=== PATIENT | male | born 1975 | race Hispanic/Latino ===

== ENCOUNTER 2024-04-13 20:30 | Emergency (ER) | payer OTHER, MEDICARE ==
[~2024-04-13] VITALS: Ht 177.8 cm; Wt 107.0 kg
--- NOTE | 2024-04-13 20:35 | NUR ---
UA CUP PROVIDED
[2024-04-13 20:42] VITALS: BP 158/89; PULSE 105; RESP 16; TEMP 99.2; O2SAT 98
--- NOTE | 2024-04-13 20:46 | ERN ---
ED Note History of Present Illness Stated Complaint: ABDOMINAL PAIN Chief Complaint: Abdominal Pain Time Seen by MD: 20:31 Time Seen by Midlevel: 20:31 Dictation: The patient is a 48-year-old male with a history of diabetes, hypertension, p ancreatitis , multiple hernia repairs who presents to the emergency department with complaints of epigastric abdominal pain onset a week ago. Patient reports nausea but no vomiting, no diarrhea constipation. Last bowel movement this morning. Patient reports he was been following up with GI and who is tested for H pylori which was negative. Denies any fevers. Allergies: Coded Allergies: metaxalone (Unverified Allergy, Unknown, 04/13/24) Home Meds Active Scripts Dicyclomine HCl (Bentyl) 20 Mg Tab, 1 TAB PO TID for irritable bowel symptoms for 10 Days, #30 TAB 0 Refills Prov:MICAH GONZALES [employer] COORDINATOR 04/13/24 Ondansetron (Ondansetron Odt) 4 Mg Tab.rapdis, 4 MG PO Q6HPRN PRN for nausea, #16 TAB 0 Refills Prov:TANIKA GONZALESLEN [facility] 04/13/24 Past Medical History Past Medical History: Diabetes-Type II, Hypertension Surgical History: Tonsillectomy, Other Surgical History Other: BACK, RT SHOULDER RN Note Reviewed/Agreed w/PFSH: Yes Review of System Dictation Constitutional: Negative for fever,chills, and weight loss Eyes: Negative for injury, pain,redness, and discharge ENT: Negative for injury,pain or swelling Cardiovascular: Negative for chest pain, palpitations, and edema Respiratory: Negative for shortness of breath, cough, and wheezing, Abdomen/GI: Negative for vomiting, diarrhea, and constipation positive for abdominal pain, nausea Back: Negative for injury and pain : Negative for injury, bleeding and discharge MS/Extremity: Negative for injury and deformity Skin: Negative for rash, and discoloration Neuro: Negative for headache, weakness, numbness, tingling, and seizure Psych: Negative for suicide ideation, homicidal ideation, and hallucinations Initial Vital Sign VS Vital Signs Date Time Temp Pulse Resp B/P (MAP) Pulse Ox O2 Delivery O2 Flow Rate FiO2 04/13/24 20:31 99.1 105 16 155/89 98 Room Air 04/13/24 20:42 0 21 Physical Exam Dictation Vital Signs reviewed General Appearance: Alert, oriented x 3, no acute distress, well developed, nourished. Head and Face: non-traumatic. Eyes: PERRL, pink conjunctivas, eyelid no trauma, anterior chamber with arcus senilis. Ears: Pinnas intact and no signs of trauma or erythema ear canals clear and no discharge TM no erythema Nose: No discharge, no bleeding. Oropharynx: Mouth normal, tongue pink. pharynx clear,no erythema, tonsils no exudates, no abscesses noted, mucous membrane moist Neck: Supple, non-tender, no thyromegaly, no masses, no JVD, no bruits Breast:Deferred Chest:No tenderness, no crepitus, no paradoxical movement, no retractions Lungs:Clear, well-ventilated, symmetric, no rales, no wheezing, no rhonchi, no stridor, good breath sounds bilaterally Heart: Regular rate, regular rhythm, no murmur, no gallops Vascular: no peripheral edema, Abdomen: Soft, positive bowel sounds, nondistended, no guarding, nontender, no rebound, no masses no hepatomegaly, no splenomegaly, no Green's sign, no hernias. Rectal: Deferred Genital: Deferred Neurological: Normal speech, motor function intact, sensory function intact Musculoskeletal: Neck nontender, full range of motion, back nontender, full range of motion, Extremities: nontender, full range of motion Skin: Color pink, dry, no turgor, no rash, no lacerations, no abrasions, no contusions. Lymphatic: Deferred Results (Laboratory/Radiology) Laboratory/Radiology Laboratory Tests Test 04/13/24 20:40 04/13/24 21:10 Urine Color LIGHT-YELLOW (YELLOW) Urine Appearance CLEAR (CLEAR) Urine pH 6.5 (5.0-8.0) Urine Specific [place] 1.013 (1.001-1.031) Urine Protein NEGATIVE mg/dL (NEGATIVE) Urine Glucose (UA) >=1000 mg/dL (NEGATIVE) H Urine Ketones 20 mg/dL (NEGATIVE) H Urine Occult Blood NEGATIVE (NEGATIVE) Urine Nitrate NEGATIVE (NEGATIVE) Urine Bilirubin NEGATIVE mg/dL (NEGATIVE) Urine Urobilinogen 0.2 mg/dL (0.2-1.0) Urine Leukocyte Esterase NEGATIVE Jesse/uL Urine RBC None /HPF (0-1) Urine WBC 0-1 /HPF (0-1) Urine Bacteria None /HPF (None Seen) Urine Opiates Screen NEGATIVE (NEGATIVE) Urine Barbiturates Screen NEGATIVE (NEGATIVE) Urine Phencyclidine Screen NEGATIVE (NEGATIVE) Urine Amphetamines Screen NEGATIVE (NEGATIVE) Urine Benzodiazepines Screen NEGATIVE (NEGATIVE) Urine Cocaine Screen NEGATIVE (NEGATIVE) Urine Marijuana (THC) Screen NEGATIVE (NEGATIVE) White Blood Count 13.4 K/uL (4.8-10.8) H Red Blood Count 6.43 MIL/uL (4.50-6.20) H Hemoglobin 18.4 g/dL (14.0-18.0) H Hematocrit 55.8 % (42-54) H Mean Corpuscular Volume 86.8 fL (79-99) Mean Corpuscular Hemoglobin 28.6 pg (27.0-33.0) Mean Corpuscular Hemoglobin Concent 33.0 g/dL (32.0-36.0) Red Cell Distribution Width 17.1 % (11.0-15.5) H Platelet Count 239 K/uL (130-400) Mean Platelet Volume 9.2 fL (7.5-10.5) Immature Granulocyte % (Auto) 0.4 % (0-1) Neutrophils (%) (Auto) 81.0 % (40.0-77.0) H Lymphocytes (%) (Auto) 8.0 % (21.0-51.0) L Monocytes (%) (Auto) 10.1 % (3.0-13.0) Eosinophils (%) (Auto) 0.2 % (0.0-8.0) Basophils (%) (Auto) 0.3 % (0.0-5.0) Neutrophils # (Auto) 10.9 K/uL (1.8-7.7) H Lymphocytes # (Auto) 1.1 K/uL (1.0-4.8) Monocytes # (Auto) 1.4 K/uL (0.1-1.0) H Eosinophils # (Auto) 0.03 K/uL (0.00-0.70) Basophils # (Auto) 0.04 K/uL (0.00-0.20) Absolute Immature Granulocyte (auto 0.05 K/uL (0-1) Nucleated Red Blood Cells 0.0 % (0.0-0.19) White Cell Morphology Comment See comments Sodium Level 131 mmol/L (136-145) L Potassium Level 4.5 mmol/L (3.5-5.1) Chloride Level 94 mmol/L (101-111) L Carbon Dioxide Level 27 mmol/L (21-32) Blood Urea Nitrogen 13 mg/dL (7-18) Creatinine 0.9 mg/dL (0.5-1.3) Glomerular Filtration Rate Calc 105 mL/min (>90) Random Glucose 186 mg/dL (70-105) H Total Calcium 8.9 mg/dL (8.5-10.1) Total Bilirubin 1.5 mg/dL (0.2-1.0) H Direct Bilirubin 0.2 mg/dL (0.0-0.3) Aspartate Amino Transf (AST/SGOT) 46 U/L (10-37) H Alanine Aminotransferase (ALT/SGPT) 64 U/L (12-78) Alkaline Phosphatase 82 U/L (50-136) Total Creatine Kinase 371 U/L (21-232) H Troponin I High Sensitivity 9 ng/L (4-75) Total Protein 7.8 g/dL (6.0-8.3) Albumin 3.9 g/dL (3.5-5.0) Lipase 42 U/L (16-77) PATIENT: PEMA DIEZ MR#: [id number] : 1975 SEX: M AGE: 48 LOCATION: [facility] ORDER 46 STATUS: [facility] REPORT#: [id number] SERVICE 45 REASON: upper abd pain, n ORDERING PHYSICIAN: MICAH GONZALES PROCEDURE: ABD PEL W - CT ABDOMEN/PELVIS W/CONTRAST CT ABDOMEN/PELVIS W/CONTRAST HISTORY: Upper abdominal pain COMPARISON: None TECHNIQUE: Multiple sequential axial images of the abdomen and pelvis were obtained from the dome of the diaphragm through symphysis pubis. Patient was given 75 cc of Omnipaque through intravenous route. Oral contrast was not given. FINDINGS: No pleural effusion is seen bilaterally. There is no evidence of parenchymal disease or pulmonary nodule of the visualized lower lungs. Degenerative changes of the thoracolumbar spine are present. The heart is not enlarged. Postlaminectomy changes are seen with artifacts in the lower lumbar spine. Liver is enlarged with fatty changes measuring 20 cm. Gastric distention seen small bowel dilatation is seen with fluid-filled colon and small bowel loops may be related to enterocolitis. There is small periumbilical ventral hernia with fat content. The liver, spleen, adrenal glands and pancreas are unremarkable. There is no evidence of hydronephrosis bilaterally. No evidence of renal stone is seen. Fecal material is seen in the colon. There are normal size retroperitoneal and mesenteric lymph nodes. No ascites is seen. Atherosclerotic changes are present. Pelvic sidewalls are symmetric bilaterally. Bladder is well distended without wall thickening. IMPRESSION: 1. Gastric distention seen small bowel dilatation is seen with fluid-filled colon and small bowel loops may be related to enterocolitis. There is small periumbilical ventral hernia with fat content. CT was performed with one or more following dose reduction techniques: automated exposure control, adjustment of the mA and kv according to patient's size, or use of a iterative reconstruction technique. REASON: cp ORDERING PHYSICIAN: MICAH GONZALES PROCEDURE: CXR1VW - CHEST 1VW CHEST 1VW HISTORY: Chest pain COMPARISON: None FINDINGS: A frontal projection of the chest was obtained. Prominent interstitial markings are seen with possible superimposed infiltrates. The heart is borderline enlarged. Degenerative changes are seen. No evidence of aortic calcification is seen. IMPRESSION: 1. Prominent interstitial markings are seen with possible superimposed infiltrates. Labs Reviewed?: Yes EKG: (+) rhythm (Sinus rhythm) EKG Comment: Date:04/13/2024 Time:2051 Ventricular rate:93 SC interval:145 QRS duration:98 QT/QTc:329 EKG interpretation: Sinus rhythm Reviewed by ED Attending no STEMI ED Course ED Course Orders Procedure Category Date Status Time Cbc With Differential LAB 04/13/24 Complete 20:41 Troponin I High LAB 04/13/24 Complete Sensitivity 20:41 Urinalysis Profile LAB 04/13/24 Complete 20:41 12 Lead Ekg Tracing- EKG 04/13/24 Complete Technical 20:41 0.9%Nacl 1000ml (Ns PHA 04/13/24 Complete 1000ml) 21:00 Morphine 4mg Syg PHA 04/13/24 Complete (Morphine 4mg Syg) 21:00 Ondansetron 4mg Inj PHA 04/13/24 Complete (Zofran 4mg Inj) 21:00 Pantoprazole 40mg Inj PHA 04/13/24 Complete (Protonix 40mg Inj 21:00 Creatine Kinase, Total LAB 04/13/24 Complete 20:41 Chest 1vw RAD 04/13/24 Resulted 20:41 Lipase LAB 04/13/24 Complete 20:41 Basic Metabolic Panel LAB 04/13/24 Complete 20:41 Hepatic Function Panel LAB 04/13/24 Complete 20:41 Drug Screen Urine LAB 04/13/24 Complete 20:41 Ct Abdomen/Pelvis CT 04/13/24 Resulted W/Contrast 21:46 Iohexol (Omnipaque) PHA 04/13/24 Complete 22:01 Current Medications Medications (Trade) Dose Ordered Sig/Constance Route PRN Reason Start Time Stop Time Status Last Admin Dose Admin Iohexol (Omnipaque) 75 ml STK-MED ONCE IV 04/13/24 22:01 04/13/24 22:01 DC Morphine Sulfate (morPHINE 4MG SYG) 4 mg ONCE ONCE IVP 04/13/24 21:00 04/13/24 21:01 DC Ondansetron HCl (zoFRAN 4MG INJ) 4 mg ONCE ONCE IVP 04/13/24 21:00 04/13/24 21:01 DC 04/13/24 20:57 Pantoprazole Sodium (PROTonix 40MG INJ) 40 mg ONCE ONCE IVP 04/13/24 21:00 04/13/24 21:01 DC 04/13/24 20:57 Sodium Chloride 1,000 ml @ 0 mls/hr ONCE ONCE IV 04/13/24 21:00 04/13/24 21:01 DC 04/13/24 20:57 Vital Signs Date Time Temp Pulse Resp B/P (MAP) Pulse Ox O2 Delivery O2 Flow Rate FiO2 04/13/24 20:42 99.1 105 16 158/89 98 Room Air* 0 21 04/13/24 20:31 99.1 105 16 155/89 98 Room Air Medical Decision Making MDM The patient is a 48-year-old male with a history of diabetes, hypertension, pancreatitis , multiple hernia repairs who presents to the emergency department with complaints of epigastric abdominal pain onset a week ago. Patient reports nausea but no vomiting, no diarrhea constipation. Last bowel movement this morning. Patient reports he was been following up with GI and who is tested for H pylori which was negative. Denies any fevers. CBC showed mild leukocytosis, no anemia, chemistry showed mild hyponatremia, hypochloremia, normal renal function, negative troponin, negative lipase, urinalysis unremarkable, chest x-ray unremarkable. CT showed small bowel dilation is seen with fluid-filled colon and small bowel loops may be related to enterocolitis. Patient reports feeling better. no vomiting. Patient with non toxic appearance. Differential diagnosis: Gastroenteritis, bowel obstruction, electrolyte imbalance, ACS Need for hospitalization: Patient does not meet criteria for hospitalization. There are no social concerns with this patient. DX & DISP Disposition: Discharge Departure Impression: Primary Impression: Enterocolitis Additional Impressions: Abdominal pain, Mild dehydration, Hyponatremia, Hypochloremia, Leukocytosis Condition: Stable Scripts Dicyclomine HCl (Bentyl) 20 Mg Tab 1 TAB PO TID for irritable bowel symptoms for 10 Days, #30 TAB 0 Refills Prov: MICAH GONZALES [employer] COORDINATOR 04/13/24 Ondansetron (Ondansetron Odt) 4 Mg Tab.rapdis 4 MG PO Q6HPRN PRN for nausea, #16 TAB 0 Refills Prov: MICAH GONZALES [employer] COORDINATOR 04/13/24 Additional Instructions: Please follow up with the gastroenteritis soon as possible. Follow up with your primary doctor in 1-2 days. If symptoms worsen please return to ER. FOLLOW-UP WITH PRIMARY CARE PROVIDER IN 1 TO 2 DAYS. TAKE MEDICATIONS DIRECTED HERE IN THE EMERGENCY ROOM. OKAY TO CONTINUE HOME MEDICATIONS UNLESS OTHERWISE DISCUSSED DURING YOUR VISIT IN THE EMERGENCY ROOM TODAY. RETURN TO YOUR NEAREST EMERGENCY ROOM IF SYMPTOMS WORSEN OR IF THERE IS NO IMPROVEMENT. CALL 911 IF YOU NEED IMMEDIATE ASSISTANCE. TAKE TYLENOL OR MOTRIN [id number] NEEDED AND IF NO CONTRAINDICATIONS ARE PRESENT. INCREASE ORAL HYDRATION. A WOUND CULTURE OR URINE CULTURE WAS ORDERED HERE IN THE EMERGENCY ROOM DEPARTMENT PLEASE FOLLOW-UP WITH PRIMARY CARE PROVIDER AND ADVISE THEM TO GET REPEAT PORTS FROM OUR FACILITY. IF YOU HAD ANY FIDEL WRAP/SPLINTS ELIZABETH T WERE APPLIED HERE, PLEASE DO NOT REMOVE THEM UNTIL YOU SEE YOUR PRIMARY CARE OR SPECIALTY. Time of Disposition: 23:26 I have reviewed the case, and I agree with, Diagnosis and Plan I performed a substantive portion of the visit. I have reviewed and personally made and approve the management plan that is documented in the notes by myself with SARINA/resident. I acknowledged full responsibility for the patient's management plan. MICAH GONZALES Apr 13, 2024 20:46 SAMPSON KURTZ DO Apr 14, 2024 00:02
--- NOTE | 2024-04-13 20:55 | EKG ---
[facility] Test Date: 2024-04-13 Test Time: 20:52:00 Pat Name: PEMA DIEZ Department: ED Room: Gender: M Manager Of Internal Audit: [id number] : 1975 Requested By: MICAH GONZALES Order Number: [id number] Reading MD: Elisabet Hutchinson Measurements Intervals [place] Rate: 93 P: 50 [place]: 145 QRS: 84 QRSD: 98 T: 62 QT: 329 QTc: 410 Interpretive Statements Sinus rhythm ST elevation suggests acute pericarditis No previous ECG available for comparison Electronically Signed On 04-17-2024 15:50:27 MANAGER OF DIGITAL by Elisabet Hutchinson Please click the below link to view image of tracing.
[2024-04-13] MEDS: ondanSETRON 4MG INJ IVP ONE (20:57)
[2024-04-13] MEDS: morPHINE 4 MG SYG IVP ONE (20:57)
[2024-04-13] MEDS: PANTOPrazole 40 MG/VIAL IVP ONE (20:57)
[2024-04-13] MEDS: 0.9%NACL 1000ML 1,000 ML IV ONE (20:57)
[2024-04-13 21:17] LABS: BASOPHILS # (AUTO) 0.04 K/uL (0.00-0.20); BASOPHILS % (AUTO) 0.3 % (0.0-5.0); EOSINOPHILS # (AUTO) 0.03 K/uL (0.00-0.70); EOSINOPHILS % (AUTO) 0.2 % (0.0-8.0); HEMATOCRIT 55.8 % (42-54); IMMATURE GRANULOCYTE ABSOLUTE 0.05 K/uL (0-1); LYMPHOCYTES # (AUTO) 1.1 K/uL (1.0-4.8); MEAN CORPUSCULAR HEMOGLOBIN 28.6 pg (27.0-33.0); MEAN CORPUSCULAR VOLUME 86.8 fL (79-99); MONOCYTES # (AUTO) 1.4 K/uL (0.1-1.0); MONOCYTES % (AUTO) 10.1 % (3.0-13.0); NEUTROPHILS # (AUTO) 10.9 K/uL (1.8-7.7); PLATELET COUNT (AUTO) 239 K/uL (130-400); RED BLOOD CELL COUNT(AUTO) 6.43 MIL/uL (4.50-6.20); RED CELL DISTRIBUTION WIDTH 17.1 % (11.0-15.5); WHITE BLOOD COUNT (AUTO) 13.4 K/uL (4.8-10.8)
[2024-04-13 21:30] LABS: CREATININE 0.9 mg/dL (0.5-1.3); POTASSIUM 4.5 mmol/L (3.5-5.1)
[2024-04-13 21:34] LABS: ALBUMIN 3.9 g/dL (3.5-5.0); BILIRUBIN,DIRECT 0.2 mg/dL (0.0-0.3); BILIRUBIN,TOTAL 1.5 mg/dL (0.2-1.0); TOTAL PROTEIN, SERUM 7.8 g/dL (6.0-8.3)
[2024-04-13 21:48] LABS: APPEARANCE,URINE CLEAR (CLEAR); BILIRUBIN,URINE NEGATIVE (NEGATIVE); COLOR,URINE LIGHT-YELLOW (YELLOW); GLUCOSE, URINE (UA) >=1000 mg/dL (NEGATIVE); KETONES,URINE 20 mg/dL (NEGATIVE); LEUKOCYTE ESTERASE ,URINE NEGATIVE Leu/uL (NEGATIVE); NITRATE,URINE NEGATIVE (NEGATIVE); OCCULT BLOOD,URINE NEGATIVE (NEGATIVE); PH,URINE 6.5 (5.0-8.0); PROTEIN,URINE NEGATIVE (NEGATIVE); UROBILINOGEN,URINE 0.2 mg/dL (0.2-1.0)
[2024-04-13 21:49] LABS: ADD UA MICROSCOPIC YES
[2024-04-13 21:53] LABS: AMPHET/METH SCREEN,URINE NEGATIVE (NEGATIVE); BARBITURATE SCREEN, URINE NEGATIVE (NEGATIVE); BENZODIAZEPINES SCREEN,URINE NEGATIVE (NEGATIVE); CANNABINOID SCREEN,URINE NEGATIVE (NEGATIVE); COCAINE SCREEN,URINE NEGATIVE (NEGATIVE); OPIATE SCREEN,URINE NEGATIVE (NEGATIVE); PHENCYCLIDINE SCREEN,URINE NEGATIVE (NEGATIVE); WBC,URINE 0-1 /HPF (0-1)
[2024-04-13] MEDS ORDERED: IOHEXOL-350 75 ML VIAL IV ONE (22:01)
--- NOTE | 2024-04-13 22:39 | HMCIMG ---
CHEST 1VW HISTORY: Chest pain COMPARISON: None FINDINGS: A frontal projection of the chest was obtained. Prominent interstitial markings are seen with possible superimposed infiltrates. The heart is borderline enlarged. Degenerative changes are seen. No evidence of aortic calcification is seen. IMPRESSION: 1. Prominent interstitial markings are seen with possible superimposed infiltrates.
--- NOTE | 2024-04-13 23:00 | HMCIMG ---
CT ABDOMEN/PELVIS W/CONTRAST HISTORY: Upper abdominal pain COMPARISON: None TECHNIQUE: Multiple sequential axial images of the abdomen and pelvis were obtained from the dome of the diaphragm through symphysis pubis. Patient was given 75 cc of Omnipaque through intravenous route. Oral contrast was not given. FINDINGS: No pleural effusion is seen bilaterally. There is no evidence of parenchymal disease or pulmonary nodule of the visualized lower lungs. Degenerative changes of the thoracolumbar spine are present. The heart is not enlarged. Postlaminectomy changes are seen with artifacts in the lower lumbar spine. Liver is enlarged with fatty changes measuring 20 cm. Gastric distention seen small bowel dilatation is seen with fluid-filled colon and small bowel loops may be related to enterocolitis. There is small periumbilical ventral hernia with fat content. The liver, spleen, adrenal glands and pancreas are unremarkable. There is no evidence of hydronephrosis bilaterally. No evidence of renal stone is seen. Fecal material is seen in the colon. There are normal size retroperitoneal and mesenteric lymph nodes. No ascites is seen. Atherosclerotic changes are present. Pelvic sidewalls are symmetric bilaterally. Bladder is well distended without wall thickening. IMPRESSION: 1. Gastric distention seen small bowel dilatation is seen with fluid-filled colon and small bowel loops may be related to enterocolitis. There is small periumbilical ventral hernia with fat content. CT was performed with one or more following dose reduction techniques: automated exposure control, adjustment of the mA and kv according to patient's size, or use of a iterative reconstruction technique.
[2024-04-13] MEDS ORDERED: ONDA-243 PO (23:16)
[2024-04-13] MEDS ORDERED: DICY20TA2 PO (23:28)
== END 2024-04-13 23:42 | disposition home or self-care (01) ==
LOC: EDH 20:30
DX: K52.9 Noninfective gastroenteritis and colitis, unspecified (principal); R10.13 Epigastric pain; E86.0 Dehydration; E87.1 Hypo-osmolality and hyponatremia; E87.8 Other disorders of electrolyte and fluid balance, not elsewhere classified; E11.9 Type 2 diabetes mellitus without complications; I10 Essential (primary) hypertension; Z90.89 Acquired absence of other organs; Z79.899 Other long term (current) drug therapy
CPT/HCPCS: 99285; 74177; 96374; 71045; 96375; 82550; 80076; 84484; 80048; 80305; 83690; 85025; 36415; 93005; 81001; J7030; J2405; J2470; Q9967; J2270

== ENCOUNTER 2024-06-13 14:17 | Emergency (ER) | payer OTHER, MEDICARE ==
[~2024-06-13] VITALS: Ht 177.8 cm; Wt 108.9 kg
[~2024-06-13 14:17] MED LIST: DICY20TA2 PO; ONDA-243 PO
[2024-06-13 14:48] VITALS: BP 164/88; PULSE 81; RESP 20; TEMP 99.1
== END 2024-06-13 18:00 | disposition left against medical advice (07) ==
LOC: EDH 14:17
DX: R50.9 Fever, unspecified (principal); R51.9 Headache, unspecified; R11.0 Nausea; Z53.21 Procedure and treatment not carried out due to patient leaving prior to being seen by health care provider

== ENCOUNTER 2024-06-25 19:46 | Emergency (ER) | payer OTHER, MEDICARE ==
[~2024-06-25] VITALS: Ht 177.8 cm; Wt 122.5 kg
--- NOTE | 2024-06-25 20:43 | NUR ---
REPORT TO GILMA CELESTIN
[2024-06-25] MEDS: TETRACAINE HCL 0.5% 4 ML OPHTH SOLN OP ONE (21:11)
[2024-06-25] MEDS ORDERED: ERYT1OIN7 OP (21:11)
[2024-06-25] MEDS: FLUORESCEIN SODIUM 1 STRIP STRIP OP ONE (21:11)
[2024-06-25 21:12] VITALS: BP 155/70; PULSE 76; RESP 16; TEMP 98.3; O2SAT 98
--- NOTE | 2024-06-25 21:12 | ERN ---
ED Note History of Present Illness Stated Complaint: LEFT EYE INJURY Chief Complaint: Eye Problems Time Seen by MD: 19:50 Time Seen by Midlevel: 19:50 Dictation: Patient is a 49-year-old male with a history of diabetes, hypertension, hyperlipidemia who presents to the emergency department with complaints of left eye foreign body sensation onset five 3:00 p.m. while he was working on a car and reports the splint on his eye. Denies any visual deficits. Allergies: Coded Allergies: metaxalone (Unverified Allergy, Unknown, 04/13/24) Home Meds Active Scripts Dicyclomine HCl (Bentyl) 20 Mg Tab, 1 TAB PO TID for irritable bowel symptoms for 10 Days, #30 TAB 0 Refills Prov:MICAH GONZALES [facility] 04/13/24 Ondansetron (Ondansetron Odt) 4 Mg Tab.rapdis, 4 MG PO Q6HPRN PRN for nausea, #16 TAB 0 Refills Prov:TANIKA GONZALESLEN [facility] 04/13/24 Past Medical History Past Medical History: Diabetes-Type II, Hypertension Surgical History: Tonsillectomy, Other Surgical History Other: BACK, RT SHOULDER, LEFT KNEE RN Note Reviewed/Agreed w/PFSH: Yes Review of System Dictation Constitutional: Negative for fever,chills, and weight loss Eyes: Negative for injury, ,redness, and discharge positive for left eye pain ENT: Negative for injury,pain or swelling Cardiovascular: Negative for chest pain, palpitations, and edema Respiratory: Negative for shortness of breath, cough, and wheezing, Abdomen/GI: Negative for abdominal pain, nausea, vomiting, diarrhea, and constipation Back: Negative for injury and pain : Negative for injury, bleeding and discharge MS/Extremity: Negative for injury and deformity Skin: Negative for rash, and discoloration Neuro: Negative for headache, weakness, numbness, tingling, and seizure Psych: Negative for suicide ideation, homicidal ideation, and hallucinations Initial Vital Sign VS Vital Signs Date Time Temp Pulse Resp B/P (MAP) Pulse Ox O2 Delivery O2 Flow Rate FiO2 06/25/24 19:47 98.2 83 18 140/77 98 Room Air Physical Exam Dictation Vital Signs reviewed General Appearance: Alert, oriented x 3, no acute distress, well developed, nourished. Head and Face: non-traumatic. Eyes: PERRL, pink conjunctivas, eyelid no trauma, anterior chamber with arcus senilis. Ears: Pinnas intact and no signs of trauma or erythema ear canals clear and no discharge TM no erythema Nose: No discharge, no bleeding. Oropharynx: Mouth normal, tongue pink. pharynx clear,no erythema, tonsils no exudates, no abscesses noted, mucous membrane moist Neck: Supple, non-tender, no thyromegaly, no masses, no JVD, no bruits Breast:Deferred Chest:No tenderness, no crepitus, no paradoxical movement, no retractions Lungs:Clear, well-ventilated, symmetric, no rales, no wheezing, no rhonchi, no stridor, good breath sounds bilaterally Heart: Regular rate, regular rhythm, no murmur, no gallops Vascular: no peripheral edema, Abdomen: Soft, positive bowel sounds, nondistended, no guarding, nontender, no rebound, no masses no hepatomegaly, no splenomegaly, no Green's sign, no hernias. Rectal: Deferred Genital: Deferred Neurological: Normal speech, motor function intact, sensory function intact Musculoskeletal: Neck nontender, full range of motion, back nontender, full range of motion, Extremities: nontender, full range of motion Skin: Color pink, dry, no turgor, no rash, no lacerations, no abrasions, no contusions. Lymphatic: Deferred Results (Laboratory/Radiology) Labs Reviewed?: Yes ED Course ED Course Orders Procedure Category Date Status Time Tetracaine Hcl PHA 06/25/24 Complete (Pontocaine 0.5% 20:00 Fluorescein Sodium PHA 06/25/24 Complete (Dznmy-U-Mlsgl At) 20:00 Current Medications Medications (Trade) Dose Ordered Sig/Constance Route PRN Reason Start Time Stop Time Status Last Admin Dose Admin Fluorescein Sodium (Nahgs-E-Hduqo At) 1 strip ONCE ONCE OP 06/25/24 20:00 06/25/24 20:03 DC Tetracaine HCl (Pontocaine 0.5% Ophth Soln) 1 OR 2 DROPS ONCE ONCE OP 06/25/24 20:00 06/25/24 20:03 DC Vital Signs Date Time Temp Pulse Resp B/P (MAP) Pulse Ox O2 Delivery O2 Flow Rate FiO2 06/25/24 19:47 98.2 83 18 140/77 98 Room Air Medical Decision Making MDM Patient is a 49-year-old male with a history of diabetes, hypertension, hy perlipidemia who presents to the emergency department with complaints of left eye foreign body sensation onset five 3:00 p.m. while he was working on a car and reports the splint on his eye. Denies any visual deficits. No obvious foreign body identified on physical exam, slight dye uptake to 12:00 o'clock of cornea. Patient will be treated with the erythromycin and i nstructed to follow up with PCP. In Ophthalmology. Differential diagnosis: Corneal abrasion, foreign object, conjunctivitis Need for hospitalization: Patient does not meet criteria for hospitalization. There are no social concerns with this patient. DX & DISP Disposition: Discharge Departure Impression: Primary Impression: Corneal abrasion, left Condition: Stable Scripts Erythromycin Base (Erythromycin) 5 Mg/Gram (0.5 %) Oint...g. 1 CM OP QID for 5 Days, #1 UNIT Prov: MICAH GONZALES 06/25/24 Additional Instructions: Please follow up with your primary doctor in 1-2 days. You will need to follow up with Ophthalmology. [facility] [place] [address] [place] [phone] FOLLOW-UP WITH PRIMARY CARE PROVIDER IN 1 TO 2 DAYS. TAKE MEDICATIONS DIRECTED HERE IN THE EMERGENCY ROOM. OKAY TO CONTINUE HOME MEDICATIONS UNLESS OTHERWISE DISCUSSED DURING YOUR VISIT IN THE EMERGENCY ROOM TODAY. RETURN TO YOUR NEAREST EMERGENCY ROOM IF SYMPTOMS WORSEN OR IF THERE IS NO IMPROVEMENT. CALL 911 IF YOU NEED IMMEDIATE ASSISTANCE. TAKE TYLENOL OR MOTRIN [id number] NEEDED AND IF NO CONTRAINDICATIONS ARE PRESENT. INCREASE ORAL HYDRATION. A WOUND CULTURE OR URINE CULTURE WAS ORDERED HERE IN THE EMERGENCY ROOM DEPARTMENT PLEASE FOLLOW-UP WITH PRIMARY CARE PROVIDER AND ADVISE THEM TO GET REPEAT PORTS FROM OUR FACILITY. IF YOU HAD ANY FIDEL WRAP/SPLINTS THAT WERE APPLIED HERE, PLEASE DO NOT REMOVE THEM UNTIL YOU SEE YOUR PRIMARY CARE OR SPECIALTY. Referrals: MICHELLE RAMÍREZ JR., MD (PCP) Time of Disposition: 21:09 I have reviewed the case, and I agree with, Diagnosis and Plan MICAH GONZALES Jun 25, 2024 21:12
--- NOTE | 2024-06-25 21:26 | NUR ---
UNABLE TO DISCHARGE DUE TO REGISTRATATION PROCESS
== END 2024-06-25 21:40 | disposition home or self-care (01) ==
LOC: EDH 19:46
DX: S05.02XA Injury of conjunctiva and corneal abrasion without foreign body, left eye, initial encounter (principal); E11.9 Type 2 diabetes mellitus without complications; I10 Essential (primary) hypertension; Z90.89 Acquired absence of other organs; X58.XXXA Exposure to other specified factors, initial encounter; Y93.89 Activity, other specified; Y92.89 Other specified places as the place of occurrence of the external cause; Y99.8 Other external cause status
CPT/HCPCS: 99283

== ENCOUNTER 2024-09-02 14:52 | Emergency (ER) | payer OTHER, MEDICARE ==
[~2024-09-02] VITALS: Ht 177.8 cm; Wt 111.1 kg
[~2024-09-02 14:52] MED LIST changes: +ERYT1OIN7 OP
--- NOTE | 2024-09-02 15:03 | ERN ---
ED Note History of Present Illness Stated Complaint: ALLERGIC REACTION Chief Complaint: Allergic Reaction Time Seen by MD: 14:56 Dictation: PATIENT IS HERE FOR A PROBABLE ACUTE ALLERGIC REACTION AFTER DRINKING SOME LIQUID TYLENOL 30 MINUTES PRIOR TO ARRIVAL. IMMEDIATELY AFTER THE INGESTION, HE FELT HIS FACE FLUSH SHE FELT BURNING IN HIS LIPS AND THROAT. NO SHORTNESS A BREATH NO RASH. Allergies: Coded Allergies: avocado (Unverified Allergy, Unknown, 09/02/24) metaxalone (Unverified Allergy, Unknown, 04/13/24) Home Meds Active Scripts Erythromycin Base (Erythromycin) 5 Mg/Gram (0.5 %) Oint...g., 1 CM OP QID for 5 Days, #1 UNIT Prov:GONZALESTANIKAMICAH [facility] 06/25/24 Dicyclomine HCl (Bentyl) 20 Mg Tab, 1 TAB PO TID for irritable bowel symptoms for 10 Days, #30 TAB 0 Refills Prov:GONZALESTANIKAMICAH [facility] 04/13/24 Ondansetron (Ondansetron Odt) 4 Mg Tab.rapdis, 4 MG PO Q6HPRN PRN for nausea, #16 TAB 0 Refills Prov:TANIKA GONZALESLEN [facility] 04/13/24 Past Medical History Past Medical History: Diabetes-Type II, Hypertension Surgical History: Tonsillectomy, Other Surgical History Other: multiple back sx Review of System Dictation CONSTITUTIONAL: NEGATIVE EXCEPT FOR HPI HEAD/FACE: NEGATIVE EXCEPT FOR HPI EENT: NEGATIVE EXCEPT FOR HPI BURNING TONGUE AND LIPS. RESPIRATORY: NEGATIVE EXCEPT FOR HPI GASTROINTESTINAL/ABDOMINAL: NEGATIVE EXCEPT FOR HPI GENITOURINARY: NEGATIVE EXCEPT FOR HPI MUSCULOSKELETAL: NEGATIVE EXCEPT FOR HPI INTEGUMENTARY: NEGATIVE EXCEPT FOR HPI NEUROLOGICAL/PSYCH: NEGATIVE EXCEPT FOR HPI FLUSHING TO FACE HEMATOLOGIC/LYMPHATIC: NEGATIVE EXCEPT FOR HPI ALL SYSTEMS NEGATIVE, EXCEPT NOTED ABOVE. 13 POINT REVIEW OF SYSTEMS ASSESSED AND ALL NEGATIVE EXCEPT FOR ABOVE. Initial Vital Sign VS Vital Signs Date Time Temp Pulse Resp B/P (MAP) Pulse Ox O2 Delivery O2 Flow Rate FiO2 09/02/24 14:53 99.0 86 18 130/75 95 Room Air 0 09/02/24 14:57 21 Physical Exam Dictation VITAL SIGNS REVIEWED GENERAL APPEARANCE: ALERT, ORIENTED X 3, MODERATE ACUTE DISTRESS, WELL DEVELOPED, NOURISHED. OBESE HEAD AND FACE: NON-TRAUMATIC. EYES: PERRL, INJECT CONJUNCTIVAS, EYELID NO TRAUMA, ANTERIOR CHAMBER WITH ARCUS SENILIS. EARS: PINNAS INTACT AND NO SIGNS OF TRAUMA OR ERYTHEMA EAR CANALS CLEAR AND NO DISCHARGE TM NO ERYTHEMA NOSE: NO DISCHARGE, NO BLEEDING. OROPHARYNX: MOUTH NORMAL, TONGUE PINK, NO ANGIOEDEMA VOICE IS CLEAR PHARYNX CLEAR,NO ERYTHEMA, TONSILS NO EXUDATES, NO ABSCESSES NOTED, MUCOUS MEMBRANE MOIST NECK: SUPPLE, NON-TENDER, NO THYROMEGALY, NO MASSES, NO JVD, NO BRUITS BREAST:DEFERRED CHEST:NO TENDERNESS, NO CREPITUS, NO PARADOXICAL MOVEMENT, NO RETRACTIONS LUNGS:CLEAR, WELL-VENTILATED, SYMMETRIC, NO RALES, NO WHEEZING, NO RHONCHI, NO STRIDOR, GOOD BREATH SOUNDS BILATERALLY HEART: REGULAR RATE, REGULAR RHYTHM, NO MURMUR, NO GALLOPS VASCULAR: NO PERIPHERAL EDEMA, ABDOMEN: SOFT, POSITIVE BOWEL SOUNDS, NONDISTENDED, NO GUARDING, NONTENDER, NO REBOUND, NO MASSES NO HEPATOMEGALY, NO SPLENOMEGALY, NO BOOTH'S SIGN, NO HERNIAS. RECTAL: DEFERRED GENITAL: DEFERRED NEUROLOGICAL: NORMAL SPEECH, MOTOR FUNCTION INTACT, SENSORY FUNCTION INTACT MUSCULOSKELETAL: NECK NONTENDER, FULL RANGE OF MOTION, BACK NONTENDER, FULL RANGE OF MOTION, EXTREMITIES: NONTENDER, FULL RANGE OF MOTION SKIN: COLOR PINK, DRY, NO TURGOR, NO RASH, NO LACERATIONS, NO ABRASIONS, NO CONTUSIONS. SKIN FLUSHED LYMPHATIC: DEFERRED Results (Laboratory/Radiology) Labs Reviewed?: Yes ED Course ED Course Orders Procedure Category Date Status Time Dexamethasone 4mg/Ml PHA 09/02/24 Complete 1ml Vial (Dexametha 15:00 Diphenhydramine Hcl PHA 09/02/24 Complete (Benadryl Inj) 14:59 Famotidine 20mg Tab PHA 09/02/24 Complete (Pepcid 20mg Tab) 15:00 Current Medications Medications (Trade) Dose Ordered Sig/Constance Route PRN Reason Start Time Stop Time Status Last Admin Dose Admin Dexamethasone Sodium Phosphate (dexaMETHasone 4MG/ML 1ML VIAL) 8 mg ONCE ONCE IM 09/02/24 15:00 09/02/24 15:04 DC Diphenhydramine HCl (BENAdryl INJ) 50 mg ONCE STAT IM 09/02/24 14:59 09/02/24 15:05 DC Famotidine (Pepcid 20mg Tab) 40 mg ONCE ONCE PO 09/02/24 15:00 09/02/24 15:05 DC Vital Signs Date Time Temp Pulse Resp B/P (MAP) Pulse Ox O2 Delivery O2 Flow Rate FiO2 09/02/24 14:57 99.0 86 18 130/75 95 Room Air* 0 21 09/02/24 14:53 99.0 86 18 130/75 95 Room Air 0 1500/NO LABS OR IMAGING INDICATED. WE WILL P2 PATIENT IMMEDIATELY FOR AN ACUTE ALLERGIC REACTION. DISCHARGED HOME WITH INSTRUCTIONS TO AVOID LIQUID TYLENOL AND SEE HIS PRIMARY CARE DOCTOR ON WEDNESDAY FOR FOLLOW UP.1540/ 1540/patient states feeling markedly better after treatment. We will be discharging patient home to avoid liquid Tylenol and follow up with his doctor Wednesday Medical Decision Making MDM MEDICAL DECISION-MAKING WAS BASED ON EMPIRIC TREATMENT FOR AN ACUTE ALLERGIC REACTION. PATIENT GIVEN BENADRYL 50, DECADRON 8 MG IM, PEPCID 40 MG P.O.. INSTRUCTED TO AVOID LIQUID TYLENOL AND LIST HAS A AN ALLERGY. SEE HIS PRIMARY CARE DOCTOR WEDNESDAY. DX & DISP Disposition: Discharge Departure Impression: Primary Impression: Acute allergic reaction Additional Impression: Angioedema of tongue Condition: Stable Scripts Diphenhydramine HCl (Benadryl) 50 Mg Cap 50 MG PO Q6H for itching/rash, #20 CAP 0 Refills Prov: KADEN ARANA NP 09/02/24 Prednisone (Prednisone) 20 Mg Tablet 1 TAB PO AD for 6 Days, #14 TAB 0 Refills TAKE 1 TAB BY MOUTH THREE TIMES PER DAY X3 DAYS, THEN TAKE 1 TAB BY MOUTH TWICE A DAY X2 DAYS, THEN TAKE 1 TAB BY MOUTH ONCE A DAY X1 DAY. Prov: KADEN ARANA NP 09/02/24 Additional Instructions: Follow-up with primary care provider in 1 to 2 days. Take medications as directed here in the emergency room. Okay to continue home medications unless otherwise discussed during your visit in the emergency room today. Return to your nearest emergency room if symptoms worsen or if there is no improvement. Call 911 if you need immediate assistance. Take Tylenol or Motrin [id number] as needed and if no contraindications are present. Increase oral hydration. A wound culture or urine culture was ordered here in the emergency room department please follow-up with primary care provider and advise them to get repeat ports from our facility. If you had any [place] wrap/splints that were applied here, please do not remove them until you see your primary care or specialty. Avoid liquid Tylenol and list as allergy. Take Benadryl 50 mg every 6 hours for three more doses. Take prednisone as directed until gone with food. Follow up with your primary care doctor on Wednesday. Referrals: MICHELLE RAMÍREZ JR., MD (PCP) Time of Disposition: 15:42 I have reviewed the case, and I agree with, Diagnosis and Plan KADEN ARANA NP Sep 02, 2024 15:03
[2024-09-02] MEDS ORDERED: PRED20TA3 PO (15:42)
[2024-09-02] MEDS ORDERED: DIPH50 PO (15:42)
[2024-09-02 16:00] VITALS: BP 136/70; PULSE 88; RESP 16; TEMP 98.3; O2SAT 98
[2024-09-02] MEDS: DiphenhydrAMINE HCL 50 MG/ML VIAL IM STA (16:10)
[2024-09-02] MEDS: dexaMETHasone SOD PHOSPHATE 4 MG/ML 1ML VIAL IM ONE (16:10)
[2024-09-02] MEDS: FAMOTIDINE 20MG TAB PO ONE (16:11)
--- NOTE | 2024-09-02 16:26 | NUR ---
unable to depart due to reg process
== END 2024-09-02 17:07 | disposition home or self-care (01) ==
LOC: EDH 14:52
DX: T78.3XXA Angioneurotic edema, initial encounter (principal); E11.9 Type 2 diabetes mellitus without complications; I10 Essential (primary) hypertension; Z90.89 Acquired absence of other organs; X58.XXXA Exposure to other specified factors, initial encounter
CPT/HCPCS: 99284; 96372 ×2; J1100; J1200